=== PATIENT | female | born 1990 | race Caucasian/White ===

== ENCOUNTER 2016-08-12 09:40 | Day surgery (SDC) | payer OTHER ==
[2016-08-12] MEDS ORDERED: Aloe Vera/Sodium Chloride Gel 14.1 GM Tube ONE (09:55)
[2016-08-12] MEDS ORDERED: Oxymetazoline 0.05% Nasal Spray 15 ML Bottle ONE (09:55)
[2016-08-12] MEDS ORDERED: Lidocaine 2% with EPINEPHrine 1:100,000 20 ML MDV ONE (09:55)
[2016-08-12] MEDS ORDERED: Midazolam 1 MG/ML 2 ML SDV ONE (10:03)
[2016-08-12] MEDS ORDERED: fentaNYL 250 MCG/5 ML SDV ONE (10:03)
[2016-08-12] MEDS ORDERED: Lidocaine 2% 5 ML SDV ONE (10:03)
[2016-08-12] MEDS ORDERED: Propofol 200 MG/20 ML SDV ONE (10:03)
[2016-08-12] MEDS ORDERED: Rocuronium 10 MG/ML 10 ML Syringe ONE (10:20)
[2016-08-12] MEDS ORDERED: Ondansetron 4 MG/2 ML SDV ONE (10:21)
[2016-08-12] MEDS ORDERED: Neostigmine Methylsulfate 1 MG/ML 5 ML Syringe IV ONE (10:24)
[2016-08-12] MEDS ORDERED: Scopolamine 1.5 MG Transdermal Patch TRDERM PRN (10:46)
--- NOTE | 2016-08-12 10:46 | PCM.PREANE ---
Preanesthetic Assessment - Anesthesia/Transfusion/Family Hx Anesthesia History: Prior Anesthesia Without Reaction Transfusion History: No Prior Transfusion(s) - Physical Assessment O2 Sat by Pulse Oximetry: 98 Respiratory Rate: 16 Vital Signs: Last Vital Signs Temp 36.7 C 08/12/16 10:05 Pulse 79 08/12/16 10:05 Resp 16 08/12/16 10:05 BP 116/62 08/12/16 10:05 Pulse Ox 98 08/12/16 10:05 Height: 1.73 m Weight: 62.596 kg - Lab Values: Laboratory Last Values Urine HCG, Qual NEGATIVE (NEGATIVE) 08/12/16 10:00 - Allergies Allergies/Adverse Reactions: Allergies Allergy/AdvReac Type Severity Reaction Status Date / Time venom-honey bee Allergy Anaphylactic Verified 08/11/16 08:48 [bee venom (honey bee)] Shock PreAnesthesia Questionnaire HEENT History: Reports: Sinusitis (maxillary) Cardiovascular History: Reports: Other (see below) Other Cardiovascular History: states has irregular heartbeat at times Respiratory History: Reports: Asthma (mild/moderate) Neurological History: Reports: Headaches, chronic, Other (see below) (fatigue) Psychiatric History: Reports: ADHD, Anxiety Other Immunologic History: IgA/Ige - Past Surgical History Head Surgeries/Procedures: Reports: None HEENT Surgical History: Reports: Naso-sinus surgery (for deviated septum), Oral surgery, Other (see below) ('ears pinned back') - SUBSTANCE USE Smoking Status *Q: Never Smoker Second Hand Smoke Exposure: No Days Per Week of Alcohol Use: 1 Number of Drinks Per Day: 1 Total Drinks Per Week: 1 Recreational Drug Use History: No - HOME MEDS Home Medications: Home Meds Dextroamphetamine/Amphetamine [Adderall 10 mg Tablet] 1 tab PO DAILY PRN [History] Albuterol [Ventolin HFA] 2 puff INH ASDIRECTED PRN 08/11/16 [History] EPINEPHrine [Epipen 2-Jaquan] 1 injection SUBCUT ASDIRECTED PRN 08/11/16 [History] Fluticasone Propionate [Flonase Allergy Relief] 2 spray BÁRBARA BID PRN 08/11/16 [ History] Fluticasone Propionate [Flovent HFA 110 MCG] 2 puff INH BID 08/11/16 [History] Ibuprofen 1 tab PO TID PRN 08/11/16 [History] Montelukast Sodium 10 mg PO BEDTIME 08/11/16 [History] - CURRENT (IN HOUSE) MEDS Current Meds: Current Medications Discontinued Medications Fentanyl (Sublimaze) Confirm Administered Dose 250 mcg .ROUTE .STK-MED ONE Stop: 08/12/16 10:04 Lidocaine (Xylocaine-Mpf 2%) Confirm Administered Dose 10 ml .ROUTE .STK-MED ONE Stop: 08/12/16 10:04 Lidocaine/Epinephrine (Xylocaine 2% With Epinephrine 1:100,000) Confirm Administered Dose 20 ml .ROUTE .STK-MED ONE Stop: 08/12/16 09:56 Midazolam HCl (Versed 1 Mg/Ml) Confirm Administered Dose 2 mg .ROUTE .STK-MED ONE Stop: 08/12/16 10:04 Ondansetron HCl (Zofran) Confirm Administered Dose 4 mg .ROUTE .STK-MED ONE Stop: 08/12/16 10:22 Oxymetazoline HCl (Afrin Original 0.05% Nasal [place]) Confirm Administered Dose 15 ml .ROUTE .STK-MED ONE Stop: 08/12/16 09:56 Propofol (Diprivan 20 Ml) Confirm Administered Dose 400 mg .ROUTE .STK-MED ONE Stop: 08/12/16 10:04 Rocuronium [place] (Zemuron) Confirm Administered Dose 100 mg .ROUTE .STK-MED ONE Stop: 08/12/16 10:21 Sodium Chloride ([place]ard Saline Nasal Gel) Confirm Administered Dose 14.1 gm .ROUTE .STK-MED ONE Stop: 08/12/16 09:56 Preanesthetic Assessment - ANESTHESIA/TRANSFUSION/FAMILY HX Anesthesia/Transfusion History: Prior Anesthesia Type of Anesthesia Reaction: Reports: Excessive Nausea/Vomiting Family History of Anesthesia Reaction: No Other Intubation History Comment: no known problems - REVIEW OF SYSTEMS Constitutional: Reports: no symptoms 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: no symptoms Respiratory: Reports: no symptoms Cardiovascular: Reports: no symptoms GI: Reports: no symptoms Other: Reports: None - PHYSICAL ASSESSMENT O2 Sat by Pulse Oximetry: 98 RR: 16 Vital Signs: Last Vital Signs Temp 36.7 C 08/12/16 10:05 Pulse 79 08/12/16 10:05 Resp 16 08/12/16 10:05 BP 116/62 08/12/16 10:05 Pulse Ox 98 08/12/16 10:05 Height: 1.73 m Weight: 62.596 kg ASA Class: 2 Mental Status: Alert & Oriented x3 Airway Class: Mallampati = 2 Dentition: Reports: Normal Dentition Thyro-Mental Finger Breadths: 3 Mouth Opening Finger Breadths: 3 ROM/Head Extension: Full Respiratory Status: lungs clear to auscultation bilaterally Cardiovascular Status: regular rate & rhythm, normal S1, S2, no murmur, blood pressure WNL - LAB Values: Laboratory Last Values Urine HCG, Qual NEGATIVE (NEGATIVE) 08/12/16 10:00 - ALLERGIES Allergies/Adverse Reactions: Allergies Allergy/AdvReac Type Severity Reaction Status Date / Time venom-honey bee Allergy Anaphylactic Verified 08/11/16 08:48 [bee venom (honey bee)] Shock - BLOOD Blood Available: No - ANESTHESIA PLAN Preop Beta Lesvia: No Anesthesia Type Planned: General Anesthesia - ACKNOWLEDGEMENTS Pt an Appropriate Candidate for the Planned Anesthesia: Yes Alternatives and Risks of Anesthesia Discussed w Pt/Guardian: Yes Pt/Guardian Understands and Agrees with Anesthesia Plan: Yes
[2016-08-12] MEDS ORDERED: Lactated Ringers 1,000 ML IV SCH (11:00)
--- NOTE | 2016-08-12 11:36 | PCM.HPR ---
H & P Addendum review - H & P Addendum Review Date of Original H & P: 08/06/16 Date Reviewed: 08/12/16 Time Reviewed: 11:15 Patient was examined: No Changes
[2016-08-12] MEDS ORDERED: Lidocaine 1% 20 ML MDV ONE (12:28)
[2016-08-12] MEDS ORDERED: fentaNYL 100 MCG/2 ML SDV IVPUSH PRN (12:45)
--- NOTE | 2016-08-12 13:30 | PCM.OPNOTE ---
- General Post-Op/Procedure Note Date of Surgery/Procedure: 08/12/16 Condition: Good Free Text/Narrative:: Pre operative Diagnosis: Nasal congestion, bilateral inferior turbinate hypertrophy, rhinitis Post operative Diagnosis : Same Procedure: Coblation reduction of bilateral inferior turbinates [ CPT 83397( 50) ]. Surgeon: Nan Gamboa MD Anesthesia: GA Anesthesiologist: Dr Bryant Date of procedure: 08/12/16 Indications: Nasal congestion, bilateral inferior turbinate hypertrophy, rhinitis Findings: Bilateral inferior turbinate hypertrophy; pale mucosa; stringy mucoid secretions Operation Details: An informed consent was obtained. A time out was performed and the patient was brought back to the operating room and laid supine on the operating table. General anesthesia was administered with an endotracheal tube. Patient was prepped and draped in a standard fashion. A 0 degree rigid nasal endoscope was used to examine bilateral nasal cavities and photo documentation was obtained. Bilateral inferior turbinates were injected with 1% lidocaine - 2 mls was used on each side. Bilateral nasal cavities were packed with Afrin 0.5% soaked pledgets which were removed after an adequate period of decongestion. The left inferior turbinate was addressed first. A reflex 45 coblation wand with tip dipped in AYR Gel was used at setting of 6 :2 for Coblation and coagulation respectively. The point of entry was coagulated and wand was inserted till the third marking. Three michel lasting 10 seconds each were created in the single channel. The inferior turbinate was visibly shrunk. Similar procedure was repeated on the right side with visible reduction in size of turbinates. BAcitracin was applied to the turbinates bilaterally. This concluded the procedure and the patient was handed over to anesthesia for recovery. Specimens: none IV fluids: 1200 ml Blood loss: 2 ml Blood products: none Disposition: PACU for recovery Follow up: In 1 week
[2016-08-12] MEDS ORDERED: Acetaminophen 325 MG Tab PO PRN (15:25)
[2016-08-12] MEDS ORDERED: Ibuprofen 400 MG Tab PO PRN (15:26)
--- NOTE | 2016-08-12 15:59 | PCM48HPAN ---
Post Anesthesia Note - EVALUATION WITHIN 48HRS OF ANESTHETIC Vital Signs in Normal Range: Yes Patient Participated in Evaluation: Yes Respiratory Function Stable: Yes Airway Patent: Yes Cardiovascular Function Stable: Yes Hydration Status Stable: Yes Pain Control Satisfactory: Yes Nausea and Vomiting Control Satisfactory: Yes Mental Status Recovered: Yes
[2016-08-12] MEDS ORDERED: traMADol 50 MG Tab PO SCH (16:15)
[2016-08-12 16:56] VITALS: BP 116/68
== END 2016-08-12 15:40 | disposition home or self-care (01) ==
LOC: MW.SDS 09:40
PROVIDERS: ATTEND Otolaryngology
DX: J34.3 Hypertrophy of nasal turbinates (principal); J31.0 Chronic rhinitis; Z91.030 Bee allergy status; J45.909 Unspecified asthma, uncomplicated; Z79.899 Other long term (current) drug therapy; Z98.890 Other specified postprocedural states
CPT/HCPCS: 30802; 81025; A9270; J2250; J2405; J3010; J7120; 00160; J2704

== ENCOUNTER → 2016-10-19 | Outpatient (CLI) | payer OTHER | LOC: MW.CHFP 13:38 | PROVIDERS: ATTEND Physician Assistant | DX: J02.9 Acute pharyngitis, unspecified (principal) | CPT/HCPCS: 87081; 87880 ==

== ENCOUNTER 2017-06-13 10:53 | Emergency (ER) | payer OTHER ==
--- NOTE | 2017-06-13 11:35 | EDM.PDOC ---
ED HPI GENERAL MEDICAL PROBLEM - General Chief Complaint: Respiratory Problem Stated Complaint: LUNG PAIN Time Seen by Provider: 06/13/17 11:35 Source of Information: Reports: Patient - History of Present Illness INITIAL COMMENTS - FREE TEXT/NARRATIVE: HISTORY AND PHYSICAL: History of present illness: [Patient with history of IgA deficiency presents with productive cough for 2 weeks after travel to [place], she has no fever chills sweats no shortness of breath headache dizziness palpitation no bowel or urine symptoms ] Review of systems: As per history of present illness and below otherwise all systems reviewed and negative. Past medical history: As per history of present illness and as reviewed below otherwise noncontributory. Surgical history: As per history of present illness and as reviewed below otherwise noncontributory. Social history: No reported history of drug or alcohol abuse. Family history: As per history of present illness and as reviewed below otherwise noncontributory. Physical exam: HEENT: Atraumatic, normocephalic, pupils reactive, negative for conjunctival pallor or scleral icterus, mucous membranes moist, throat clear, neck supple, nontender, trachea midline. Lungs: Clear to auscultation, breath sounds equal bilaterally, chest nontender. Heart: S1S2, regular, negative for clicks, rubs, or JVD. Abdomen: Soft, nondistended, nontender. Negative for masses or hepatosplenomegaly. Negative for costovertebral tenderness. Pelvis: Stable nontender. Genitourinary: Deferred. Rectal: Deferred. Extremities: Atraumatic, negative for cords or calf pain. Neurovascular unremarkable. Neuro: Awake, alert, oriented. Cranial nerves II through XII unremarkable. Cerebellum unremarkable. Motor and sensory unremarkable throughout. Exam nonfocal. Diagnostics: [Chest 2 views Influenza HCG ] Therapeutics: [Azithromycin 2 g by mouth now Diflucan 100 mg by mouth twice a day #20 no refill ] Impression: [Acute bronchitis Cannot rule out Desert fever IgA deficiency by history ] Definitive disposition and diagnosis as appropriate pending reevaluation and review of above. RIB Pain Score (Numeric/FACES): 7 - Related Data Allergies Allergy/AdvReac Type Severity Reaction Status Date / Time venom-honey bee Allergy Anaphylactic Verified 06/13/17 11:03 [bee venom (honey bee)] Shock Home Meds: Home Meds Dextroamphetamine/Amphetamine [Adderall 10 mg Tablet] 1 tab PO DAILY PRN [History] Albuterol [Ventolin HFA] 2 puff INH ASDIRECTED PRN 08/11/16 [History] EPINEPHrine [Epipen 2-Jaquan] 1 injection SUBCUT ASDIRECTED PRN 08/11/16 [History] Fluticasone Propionate [Flonase Allergy Relief] 2 spray BÁRBARA BID PRN 08/11/16 [ History] Fluticasone Propionate [Flovent HFA 110 MCG] 2 puff INH BID 08/11/16 [History] Ibuprofen 1 tab PO TID PRN 08/11/16 [History] Montelukast Sodium 10 mg PO BEDTIME 08/11/16 [History] Phenylephrine HCl [Nasal [place]] 30 ml NS BID #1 spray 08/12/16 [Rx] Past Medical History HEENT History: Reports: None Cardiovascular History: Reports: Other (See Below) Other Cardiovascular History: states has irregular heartbeat at times Respiratory History: Reports: Asthma Gastrointestinal History: Reports: None Genitourinary History: Reports: None 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 History: Reports: None Musculoskeletal History: Reports: None Neurological History: Reports: Headaches, Chronic, Other (See Below) Psychiatric History: Reports: ADHD, Anxiety Endocrine/Metabolic History: Reports: None Hematologic History: Reports: None Immunologic History: Reports: Other (See Below) Other Immunologic History: IgA/Ige Oncologic (Cancer) History: Reports: None Dermatologic History: Reports: None - Past Surgical History Head Surgeries/Procedures: Reports: None HEENT Surgical History: Reports: Naso-Sinus Surgery, Oral Surgery, Other (See Below) Cardiovascular Surgical History: Reports: None Respiratory Surgical History: Reports: None GI Surgical History: Reports: None Female Surgical History: Reports: None Endocrine Surgical History: Reports: None Neurological Surgical History: Reports: None Musculoskeletal Surgical History: Reports: None Dermatological Surgical History: Reports: None Social & Family History - Family History Family Medical History: Noncontributory - Tobacco Use Smoking Status *Q: Never Smoker Second Hand Smoke Exposure: No - Caffeine Use Caffeine Use: Reports: Coffee - Alcohol Use Days Per Week of Alcohol Use: 1 Number of Drinks Per Day: 1 Total Drinks Per Week: 1 - Recreational Drug Use Recreational Drug Use: No ED ROS GENERAL - Review of Systems Review Of Systems: ROS reveals no pertinent complaints other than HPI. ED EXAM, GENERAL - Physical Exam Exam: See Below Course - Vital Signs Last Recorded V/S: Last Vital Signs Temp 96.5 F 06/13/17 11:05 Pulse 73 06/13/17 12:57 Resp 18 06/13/17 11:05 BP 110/74 06/13/17 12:57 Pulse Ox 100 06/13/17 12:57 - Orders/Labs/Meds Labs: Laboratory Tests 06/13/17 Range/Units 11:10 Urine HCG, Qual NEGATIVE (NEGATIVE) Meds: Medications Discontinued Medications Generic Name Dose Route Start Last Admin Trade Name Husam PRN Reason Stop Dose Admin Azithromycin 2,000 mg 06/13/17 12:25 06/13/17 12:38 Zithromax PO 06/13/17 12:26 2,000 mg NOW STA Administration Departure - Departure Time of Disposition: 05:25 Disposition: Home, Self-Care 01 Clinical Impression: Acute bronchitis - Discharge Information Instructions: Acute Bronchitis, [id number] Referrals: Merle Galicia NEWCOMER HOSTESS [Primary Care Provider] - Forms: ED Department Discharge
[2017-06-13] MEDS ORDERED: Azithromycin 250 MG Tab PO STA (12:25)
[2017-06-13 13:03] VITALS: BP 110/74
--- NOTE | 2017-06-14 19:19 | CR ---
EXAM DATE: 06/13/17 PATIENT'S AGE: 26 Patient: NAIF WOLFE Facility: [place], [place] Site . Site : 1990 Study: XRay Chest [id number]/14/2018 11:58:15 AM Ordering Physician: Angle Junior Final Report: INDICATION: Pain. Shortness of breath. TECHNIQUE: PA and lateral chest x-ray. COMPARISON: Chest x-ray 05/13/2017. FINDINGS: Heart size normal. Lungs clear without infiltrate. Chest otherwise negative without acute disease. Dictated by Colton Poole MD @ Jun 13 2017 12:15PM (Electronic Signature) Report Signed by Proxy. CHRIS
== END 2017-06-13 13:10 | disposition home or self-care (01) ==
LOC: MW.ED 10:53
DX: J20.9 Acute bronchitis, unspecified (principal); J45.909 Unspecified asthma, uncomplicated; F90.9 Attention-deficit hyperactivity disorder, unspecified type; Z79.899 Other long term (current) drug therapy; Z91.030 Bee allergy status
CPT/HCPCS: 71046; 81025; 87804; 99283; A9270

== ENCOUNTER 2018-01-31 11:50 | Emergency (ER) | payer BC, OTHER ==
--- NOTE | 2018-01-31 12:08 | EDM.PDOC ---
ED HPI GENERAL MEDICAL PROBLEM - General Chief Complaint: ENT Problem Stated Complaint: SINUS INFECTION Time Seen by Provider: 01/31/18 11:51 Source of Information: Reports: Patient History Limitations: Reports: No Limitations - History of Present Illness INITIAL COMMENTS - FREE TEXT/NARRATIVE: HISTORY AND PHYSICAL: History of present illness: Patient is a 27-year-old female who presents to the emergency room today with complaints of sinus pain for the past 2-3 days. She states that she is concerned she has a sinus infection. She is being seen at [facility] for equipment sinus infections, has had 10 within the last year. Subjective fever and chills. She denies any chest pain, shortness of breath or cough. Denies any abdominal pain, nausea, vomiting, diarrhea or constipation. Denies any chance of . Review of systems: As per history of present illness and below otherwise all systems reviewed and negative. Past medical history: As per history of present illness and as reviewed below otherwise noncontributory. Surgical history: As per history of present illness and as reviewed below otherwise noncontributory. Social history: No reported history of drug or alcohol abuse. Family history: As per history of present illness and as reviewed below otherwise noncontributory. Physical exam: General: Well-developed and well-nourished 27-year-old female. Alert and oriented. Nontoxic appearing and in no acute distress. HEENT: Atraumatic, normocephalic, pupils equal and reactive bilaterally, negative for conjunctival pallor or scleral icterus, frontal and bilateral maxillary sinus tenderness with palpation, mucous membranes moist, throat clear , TMs normal bilaterally, neck supple, nontender, trachea midline. No drooling or trismus noted. No meningeal signs Lungs: Clear to auscultation, breath sounds equal bilaterally, chest nontender. Heart: S1S2, regular rate and rhythm without overt murmur Abdomen: Soft, nondistended, nontender. Negative for masses or hepatosplenomegaly. Negative for costovertebral tenderness. Pelvis: Stable nontender. Genitourinary: Deferred. Rectal: Deferred. Skin: Intact, warm, dry. No lesions or rashes noted. Extremities: Atraumatic, negative for cords or calf pain. Neurovascular unremarkable. Neuro: Awake, alert, oriented. Cranial nerves II through XII unremarkable. Cerebellum unremarkable. Motor and sensory unremarkable throughout. Exam nonfocal. Notes: Patient states that she has had 10 sinus infections within the last year. I did offer to treat her for the sinus infection with antibiotics. She is adamant that she receives a head CT as she states "[place] needs to have this". We did discuss the versus benefits of repeated head CT's. She voices understanding and is agreeable to plan of care. We'll do a CT of her sinuses. CT shows mild sinus disease involving the maxillary and ethmoid sinuses bilaterally. I did share this information with the patient and she would like to be treated with antibiotics. We discussed appropriate follow-up as she states she does continue to see a provider at [facility]. She denies any further questions or concerns at this time. Diagnostics: Maxillofacial CT Therapeutics: None Prescription: Augmentin Impression: Sinusitis Plan: 1. Take the antibiotic as directed. 2. Tylenol and/or ibuprofen as needed for pain management. 3. Please follow-up with the ENT specialist as you already have established care with them. Return to the ED as needed and as discussed. Definitive disposition and diagnosis as appropriate pending reevaluation and review of above. - Related Data Allergies Allergy/AdvReac Type Severity Reaction Status Date / Time venom-honey bee Allergy Anaphylactic Verified 06/13/17 11:03 [bee venom (honey bee)] Shock Home Meds: Home Meds Dextroamphetamine/Amphetamine [Adderall 10 mg Tablet] 1 tab PO DAILY PRN [History] Albuterol [Ventolin HFA] 2 puff INH ASDIRECTED PRN 08/11/16 [History] EPINEPHrine [Epipen 2-Jaquan] 1 injection SUBCUT ASDIRECTED PRN 08/11/16 [History] Fluticasone Propionate [Flonase Allergy Relief] 2 spray BÁRBARA BID PRN 08/11/16 [ History] Fluticasone Propionate [Flovent HFA 110 MCG] 2 puff INH BID 08/11/16 [History] Ibuprofen 1 tab PO TID PRN 08/11/16 [History] Montelukast Sodium 10 mg PO BEDTIME 08/11/16 [History] Phenylephrine HCl [Nasal [place]] 30 ml NS BID #1 spray 08/12/16 [Rx] Past Medical History HEENT History: Reports: None Cardiovascular History: Reports: Other (See Below) Other Cardiovascular History: states has irregular heartbeat at times Respiratory History: Reports: Asthma Gastrointestinal History: Reports: None Genitourinary History: Reports: None 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: 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: None Musculoskeletal History: Reports: None Neurological History: Reports: Headaches, Chronic, Other (See Below) Psychiatric History: Reports: ADHD, Anxiety Endocrine/Metabolic History: Reports: None Hematologic History: Reports: None Immunologic History: Reports: Other (See Below) Other Immunologic History: IgA/Ige Oncologic (Cancer) History: Reports: None Dermatologic History: Reports: None - Past Surgical History Head Surgeries/Procedures: Reports: None HEENT Surgical History: Reports: Naso-Sinus Surgery, Oral Surgery, Other (See Below) Cardiovascular Surgical History: Reports: None Respiratory Surgical History: Reports: None GI Surgical History: Reports: None Female Surgical History: Reports: None Endocrine Surgical History: Reports: None Neurological Surgical History: Reports: None Musculoskeletal Surgical History: Reports: None Dermatological Surgical History: Reports: None Social & Family History - Family History Family Medical History: Noncontributory - Caffeine Use Caffeine Use: Reports: Coffee ED ROS ENT - Review of Systems Review Of Systems: ROS reveals no pertinent complaints other than HPI. ED EXAM, ENT - Physical Exam Exam: See Below (See dictation) Course - Orders/Labs/Meds Orders: Active Orders 24 hr Category Date Time Status Max Facial Sinus wo Cont [CT] Stat Exams 01/31/18 12:04 Taken Meds: Medications Discontinued Medications Generic Name Dose Route Start Last Admin Trade Name Freq PRN Reason Stop Dose Admin Amoxicillin/Clavulanate Potassium 1 tab 01/31/18 13:43 Augmentin 875 Mg/125 Mg PO 01/31/18 13:44 ONETIME ONE Departure - Departure Time of Disposition: 13:50 Disposition: Home, Self-Care 01 Clinical Impression: Sinusitis Qualifiers: Sinusitis location: maxillary Chronicity: acute Recurrence: recurrent Qualified Code(s): J01.01 - Acute recurrent maxillary sinusitis - Discharge Information Instructions: Sinusitis, Adult, [id number] Referrals: PCP,None [Primary Care Provider] - Forms: ED Department Discharge Additional Instructions: The following information is given to patients seen in the emergency department who are being discharged to home. This information is to outline your options for follow-up care. We provide all patients seen in our emergency department with a follow-up referral. The need for follow-up, as well as the timing and circumstances, are variable depending upon the specifics of your emergency department visit. If you don't have a primary care physician on staff, we will provide you with a referral. We always advise you to contact your personal physician following an emergency department visit to inform them of the circumstance of the visit and for follow-up with them and/or the need for any referrals to a consulting specialist. The emergency department will also refer you to a specialist when appropriate. This referral assures that you have the opportunity for follow-up care with a specialist. All of these measure are taken in an effort to provide you with optimal care, which includes your follow-up. Under all circumstances we always encourage you to contact your private physician who remains a resource for coordinating your care. When calling for follow-up care, please make the office aware that this follow-up is from your recent emergency room visit. If for any reason you are refused follow-up, please contact the [facility] Emergency Department at and asked to speak to the emergency department charge nurse. [facility] Primary [facility] [address] [place] [id number] 1. Take the antibiotic as directed. 2. Tylenol and/or ibuprofen as needed for pain management. 3. Please follow-up with the ENT specialist as you already have established care with them. Return to the ED as needed and as discussed. - My Orders Last 24 Hours: My Active Orders 01/31/18 12:04 Max Facial Sinus wo Cont [CT] Stat - Assessment/Plan Last 24 Hours: My Active Orders 01/31/18 12:04 Max Facial Sinus wo Cont [CT] Stat
[2018-01-31] MEDS ORDERED: Amoxicillin/Clavulanate K 875-125 MG Tab PO ONE (13:43)
[2018-01-31 14:28] VITALS: BP 122/93
--- NOTE | 2018-02-01 09:25 | CT ---
EXAM DATE: 01/31/18 PATIENT'S AGE: 27 Patient: NAIF WOLFE Facility: [place], [place] Site . Site : 1990 Study: CT Facial SINUS [id number]/3/2018 12:38:35 PM Ordering Physician: Doctor Avila Final Report: INDICATION: SINUS INFECTION, HX 2 SINUS SURGERIES TECHNIQUE: Helical noncontrast scans obtained through the paranasal sinuses. COMPARISON: CT scan of the sinuses 07/01/2016. FINDINGS: 1. Mild membrane thickening in the maxillary and ethmoid sinuses bilaterally. Small amount of mucus material in 1 of the right posterior ethmoid air cells. No air-fluid levels. The sphenoid and frontal sinuses are clear. Infundibulum of the ostiomeatal complex is obscured by membrane thickening bilaterally. 2. Chronic deviation of the nasal septum to the left by approximately 5 mm. Aylin bullosa in the right middle turbinate. Small amount of fluid within the air cell in the right middle turbinate. Hypertrophy of the right inferior nasal turbinate posteriorly without a discrete polyp identified. Olfactory recesses are well aerated. 3. Mastoid air cells and middle ears are clear. 4. Prominent adenoids. 5. Visualized intracranial structures are normal. IMPRESSION: Mild sinus disease involving the maxillary and ethmoid sinuses bilaterally as well as an air cell within the right middle turbinate. Sinus disease has worsened since 07/01/2016. Dictated by Terry Sheffield MD @ 01/31/2018 1:37:39 PM Dictated by: Terry Sheffield MD @ 01/31/2018 13:37:51 (Electronic Signature) Report Signed by Proxy. [facility] HEALTHJeanette
== END 2018-01-31 14:15 | disposition home or self-care (01) ==
LOC: MW.ED 11:50
DX: J01.01 Acute recurrent maxillary sinusitis (principal); J45.909 Unspecified asthma, uncomplicated; Z91.030 Bee allergy status; Z79.899 Other long term (current) drug therapy
CPT/HCPCS: 70486; 99283; A9270

== ENCOUNTER 2019-02-15 22:44 | Emergency (ER) | payer SELFPAY ==
--- NOTE | 2019-02-15 23:45 | EDM.PDOC ---
ED HPI GENERAL MEDICAL PROBLEM - General Chief Complaint: Upper Extremity Injury/Pain Stated Complaint: PT HURT RT HAND Time Seen by Provider: 02/15/19 23:39 - History of Present Illness INITIAL COMMENTS - FREE TEXT/NARRATIVE: HISTORY AND PHYSICAL: History of present illness: Patient is a healthy 28-year-old female who presents with complaints of persistent pain to the dorsal aspect of her right hand near the fourth and fifth digits. The patient said that 2 days ago she got her hand trapped in a stair railing and fell and it pulled the hand and she's had pain ever since with swelling. She is able to move her fingers and doesn't have finger pain per se but it's mostly in her hand. She has no proximal wrist forearm elbow or shoulder pain and she did not hit her head pass out or blackout. She is right- hand dominant. She has no neurosensory changes in her fingers or hand Review of systems: As per history of present illness and below otherwise all systems reviewed and negative. Past medical history: As per history of present illness and as reviewed below otherwise noncontributory. Surgical history: As per history of present illness and as reviewed below otherwise noncontributory. Social history: No reported history of drug or alcohol abuse. Family history: As per history of present illness and as reviewed below otherwise noncontributory. Physical exam: General: Well-developed well-nourished female who is nontoxic and vital signs are noted by me HEENT: Atraumatic, normocephalic, negative for conjunctival pallor or scleral icterus, mucous membranes moist, throat clear, neck supple, nontender, trachea midline. Lungs: Clear to auscultation, breath sounds equal bilaterally, chest nontender. Heart: S1S2, regular, and rhythm no overt murmurs Abdomen: Deferred Pelvis: Deferred Genitourinary: Deferred. Rectal: Deferred. Extremities: Atraumatic, full range of motion of all extremities with the exception of the right hand where there is ecchymosis and some soft tissue swelling appreciated on the dorsal aspect near the third fourth and fifth metacarpals. The fingers are intact without tenderness defects or soft tissue swelling as is the proximal wrist forearm elbow shoulder and clavicle. Refill is normal. Neurovascular unremarkable. Neuro: Awake, alert, oriented. Cranial nerves II through XII unremarkable. Cerebellum unremarkable. Motor and sensory unremarkable throughout. Exam nonfocal. Diagnostics: X-ray right hand Therapeutics: Toradol IM short arm post mold and sling Short arm post mold was placed by nursing and neurovascular is checked by me and are okay [id number]: case Was discussed with Dr. Barnes the hand specialist at [facility] in [place] and he agrees that she can call and see him in the clinic. I will give her that information. I will give her [facility] with Lincoln to use as needed Impression: Right hand injury/nondisplaced oblique fracture of the fourth metacarpal Definitive disposition and diagnosis as appropriate pending reevaluation and review of above. 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: Reports: Acetaminophen right hand Pain Score (Numeric/FACES): 7 - Related Data Allergies Allergy/AdvReac Type Severity Reaction Status Date / Time venom-honey bee Allergy Anaphylactic Verified 02/15/19 23:14 [bee venom (honey bee)] Shock Home Meds: Home Meds Dextroamphetamine/Amphetamine [Adderall 10 mg Tablet] 20 mg PO DAILY PRN [History] Albuterol [Ventolin HFA] 2 puff INH ASDIRECTED PRN 08/11/16 [History] Control 02/15/19 [History] FLUoxetine [PROzac] 1 tab PO DAILY 02/15/19 [History] Past Medical History HEENT History: Reports: None Cardiovascular History: Reports: Other (See Below) Other Cardiovascular History: states has irregular heartbeat at times Respiratory History: Reports: Asthma Gastrointestinal History: Reports: None Genitourinary History: Reports: None 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 Musculoskeletal History: Reports: None Neurological History: Reports: Headaches, Chronic, Other (See Below) Psychiatric History: Reports: ADHD, Anxiety, Depression Endocrine/Metabolic History: Reports: None Hematologic History: Reports: None Immunologic History: Reports: Other (See Below) Other Immunologic History: IgA/Ige Oncologic (Cancer) History: Reports: None Dermatologic History: Reports: None - Past Surgical History Head Surgeries/Procedures: Reports: None HEENT Surgical History: Reports: Naso-Sinus Surgery, Oral Surgery Cardiovascular Surgical History: Reports: None Respiratory Surgical History: Reports: None GI Surgical History: Reports: None Female Surgical History: Reports: None Endocrine Surgical History: Reports: None Neurological Surgical History: Reports: None Musculoskeletal Surgical History: Reports: None Dermatological Surgical History: Reports: None Social & Family History - Family History Family Medical History: Noncontributory - Tobacco Use Smoking Status *Q: Never Smoker - Caffeine Use Caffeine Use: Reports: Coffee - Recreational Drug Use Recreational Drug Use: No Review of Systems - Review of Systems Review Of Systems: ROS reveals no pertinent complaints other than HPI. ED EXAM, GENERAL - Physical Exam Exam: See Below (See dictation) Course - Vital Signs Last Recorded V/S: Last Vital Signs Temp 36.8 C 02/15/19 23:00 Pulse 107 H 02/15/19 23:00 Resp 16 02/15/19 23:00 BP 116/84 02/15/19 23:00 Pulse Ox 95 02/15/19 23:00 - Orders/Labs/Meds Orders: Active Orders 24 hr Category Date Time Status DME for Discharge [COMM] Stat Oth 02/16/19 00:46 Ordered Meds: Medications Discontinued Medications Generic Name Dose Route Start Last Admin Trade Name Freq PRN Reason Stop Dose Admin Ketorolac Tromethamine 60 mg 02/16/19 00:02 02/16/19 00:08 Toradol IM 02/16/19 00:03 60 mg ONETIME ONE Administration Departure - Departure Time of Disposition: 00:59 Disposition: Home, Self-Care 01 Condition: Good Clinical Impression: Injury of right hand Qualifiers: Encounter type: initial encounter Qualified Code(s): S69.91XA - Unspecified injury of right wrist, hand and finger(s), initial encounter Metacarpal bone fracture Qualifiers: Encounter type: initial encounter Metacarpal bone: fourth Fracture type: closed Metacarpal location: shaft Fracture alignment: nondisplaced Laterality: right Qualified Code(s): S62.354A - Nondisplaced fracture of shaft of fourth metacarpal bone, right hand, initial encounter for closed fracture - Discharge Information Instructions: Metacarpal Fracture, [id number] Referrals: PCP,None [Primary Care Provider] - Forms: ED Department Discharge Additional Instructions: The following information is given to patients seen in the emergency department who are being discharged to home. This information is to outline your options for follow-up care. We provide all patients seen in our emergency department with a follow-up referral. The need for follow-up, as well as the timing and circumstances, are variable depending upon the specifics of your emergency department visit. If you don't have a primary care physician on staff, we will provide you with a referral. We always advise you to contact your personal physician following an emergency department visit to inform them of the circumstance of the visit and for follow-up with them and/or the need for any referrals to a consulting specialist. The emergency department will also refer you to a specialist when appropriate. This referral assures that you have the opportunity for followup care with a specialist. All of these measure are taken in an effort to provide you with optimal care, which includes your followup. Under all circumstances we always encourage you to contact your private physician who remains a resource for coordinating your care. When calling for followup care, please make the office aware that this follow-up is from your recent emergency room visit. If for any reason you are refused follow-up, please contact the [facility] emergency department at and ask to speak to the emergency department charge nurse. Dr Hoyt & Dr Barnes [address] [address] Ice and elevate the area and leave the splint that was placed on by nursing here in the ED until you follow up with the hand specialist. Dr. Barnes was contacted this morning for follow-up and he has her name so please mention this when you call for follow-up appointment. Please call in the morning for follow- up care. Use [id number] Tylenol or appropriate for pain and he will be given Lincoln from [facility] for stronger pain management but only take while you 're at home. Return to ER as needed and as discussed - My Orders Last 24 Hours: My Active Orders 02/16/19 00:46 DME for Discharge [COMM] Stat - Assessment/Plan Last 24 Hours: My Active Orders 02/16/19 00:46 DME for Discharge [COMM] Stat
[2019-02-16] MEDS ORDERED: Ketorolac 60 MG/2 ML SDV IM ONE (00:02)
--- NOTE | 2019-02-16 00:09 | CR ---
INDICATION: Hand pain. COMPARISON: None. FINDINGS/IMPRESSION: Right hand, 3 views. Acute, nondisplaced, oblique fracture of the mid and distal shaft of the right 4th metacarpal. Mild overlying soft tissue swelling. No dislocation or other significant findings. Dictated by Teja Leblanc MD @ 02/16/2019 12:06:32 AM Dictated by: Teja Leblanc MD @ 02/16/2019 00:07:33 (Electronically Signed)
[2019-02-16 01:43] VITALS: BP 127/94; PULSE 82
== END 2019-02-16 01:31 | disposition home or self-care (01) ==
LOC: MW.ED 22:44
DX: S62.354A Nondisplaced fracture of shaft of fourth metacarpal bone, right hand, initial encounter for closed fracture (principal); S60.221A Contusion of right hand, initial encounter; J45.909 Unspecified asthma, uncomplicated; F41.9 Anxiety disorder, unspecified; F32.9 Major depressive disorder, single episode, unspecified; Z91.030 Bee allergy status; Z79.899 Other long term (current) drug therapy; W10.9XXA Fall (on) (from) unspecified stairs and steps, initial encounter
CPT/HCPCS: 29125; 73130; 96372; 99283; J1885

== ENCOUNTER 2020-02-11 22:05 | Emergency (ER) | payer MEDICAID, OTHER ==
[2020-02-11] MEDS ORDERED: Sodium Chloride 0.9% 10 ML Syringe FLUSH PRN (22:52)
[2020-02-11] MEDS ORDERED: Sodium Chloride 0.9% 2.5 ML Syringe FLUSH PRN (22:52)
--- NOTE | 2020-02-11 22:55 | EDM.PDOC ---
ED HPI GENERAL MEDICAL PROBLEM - General Chief Complaint: Cardiovascular Problem Stated Complaint: DIZZY, CAN'T STAND Time Seen by Provider: 02/11/20 22:51 Source of Information: Reports: Patient - History of Present Illness INITIAL COMMENTS - FREE TEXT/NARRATIVE: History of present illness: 29-year-old female presenting with cough, runny nose and nosebleeds and generalized fatigue and dizziness for the last 4 days. She reports she feels if she is going to pass out. She has not had any chest pain, although she does report that she feels that her chest is tight, like her breathing is tight. She does have a history of asthma and has been using her inhaler. She did have some diarrhea when her symptoms first started. Did not recall any sick exposures, however she has been going to the grocery store, yoga and yazdanism. Review of systems: As per history of present illness and below otherwise all systems reviewed and negative. Past medical history: As per history of present illness and as reviewed below otherwise noncontributory. Asthma Surgical history: As per history of present illness and as reviewed below otherwise noncontributory. Ear tubes Social history: No reported history of drug or alcohol abuse. Never smoker Family history: As per history of present illness and as reviewed below otherwise noncontributory. Physical exam: GEN: no acute distress, well appearing HEENT: Atraumatic, normocephalic, mucous membranes moist, Neck: supple. Lungs: No respiratory distress. Heart: Tachycardic Abdomen: Soft, nondistended, nontender. Back: nontender Extremities: Atraumatic. Neurovascularly intact. Neuro: Awake, alert, oriented. Neuro Exam nonfocal. Skin: warm, dry, no lesions Diagnostics: Labs, COVID swab, chest x-ray, EKG Therapeutics: IV fluids MDM: Impression: [] Plan: [] Definitive disposition and diagnosis as appropriate pending reevaluation and review of above. chest Pain Score (Numeric/FACES): 5 - Related Data Allergies Allergy/AdvReac Type Severity Reaction Status Date / Time venom-honey bee Allergy Anaphylactic Verified 02/11/20 22:27 [bee venom (honey bee)] Shock Home Meds: Home Meds Dextroamphetamine/Amphetamine [Adderall 10 mg Tablet] 20 mg PO DAILY PRN 11/15/14 [History] Albuterol [Ventolin HFA] 2 puff INH ASDIRECTED PRN 08/11/16 [History] Control 02/15/19 [History] FLUoxetine [PROzac] 1 tab PO DAILY 02/15/19 [History] Muscle Relaxwer 02/11/20 [History] predniSONE [Prednisone] 60 mg PO DAILY 5 Days #15 tablet 02/12/20 [Rx] Past Medical History HEENT History: Reports: None Cardiovascular History: Reports: Other (See Below) Other Cardiovascular History: states has irregular heartbeat at times Respiratory History: Reports: Asthma Gastrointestinal History: Reports: None Genitourinary History: Reports: None 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 Musculoskeletal History: Reports: None Neurological History: Reports: Headaches, Chronic, Other (See Below) Psychiatric History: Reports: ADD, Anxiety Endocrine/Metabolic History: Reports: None Hematologic History: Reports: None Immunologic History: Reports: Other (See Below) Other Immunologic History: IgA/Ige Oncologic (Cancer) History: Reports: None Dermatologic History: Reports: None - Infectious Disease History Infectious Disease History: Reports: Chicken Pox - Past Surgical History Head Surgeries/Procedures: Reports: None HEENT Surgical History: Reports: Myringotomy w Tube(s), Naso-Sinus Surgery, Oral Surgery Cardiovascular Surgical History: Reports: None Respiratory Surgical History: Reports: None GI Surgical History: Reports: None Female Surgical History: Reports: None Endocrine Surgical History: Reports: None Neurological Surgical History: Reports: None Musculoskeletal Surgical History: Reports: None Dermatological Surgical History: Reports: None Social & Family History - Family History Family Medical History: Noncontributory - Tobacco Use Smoking Status *Q: Never Smoker - Caffeine Use Caffeine Use: Reports: Coffee - Recreational Drug Use Recreational Drug Use: No ED ROS GENERAL - Review of Systems Review Of Systems: See Below (see hpi) ED EXAM, GENERAL - Physical Exam Exam: See Below (See HPI) EKG INTERPRETATION EKG Interpretation Comments: EKG performed at 11:16 PM, sinus tachycardia, rate 103, borderline QT interval, QTC 475. No acute ischemia, no STEMI. Interpreted by me. Course - Vital Signs Text/Narrative:: Patient with cough, mild dyspnea, dizziness and fatigue. History of asthma. Using home albuterol nebulizer without improvement. Chest x-ray shows bronchitis versus reactive airway disease. COVID swab negative. Labs unremarkable. Given IV fluids, DuoNeb nebulizer treatment, Tessalon and Robitussin with improvement in symptoms. She was able to walk to the bathroom without any dizziness or near syncope. No dyspnea on reassessment. Able to speak in clear and full sentences without any pause or signs of difficulty breathing. Will start steroids p.o. and give brief steroid burst. Initially tachycardic on arrival here, however after IV fluids were given her heart rate had much improved. Last Recorded V/S: Last Vital Signs Temp 96.8 F L 02/11/20 22:23 Pulse 130 H 02/11/20 22:23 Resp 16 02/11/20 22:23 BP 122/85 02/11/20 22:23 Pulse Ox 99 02/11/20 22:23 - Orders/Labs/Meds Orders: Active Orders 24 hr Category Date Time Status EKG Documentation Completion [RC] STAT Care 02/11/20 22:52 Active RT Aerosol Therapy [RC] ASDIRECTED Care 02/12/20 00:03 Active Sodium Chloride 0.9% [Normal Saline] 1,000 ml Med 02/12/20 01:30 Active IV ASDIRECTED Sodium Chloride 0.9% [Saline Flush] Med 02/11/20 22:52 Active 10 ml FLUSH ASDIRECTED PRN Sodium Chloride 0.9% [Saline Flush] Med 02/11/20 22:52 Active 2.5 ml FLUSH ASDIRECTED PRN Saline Lock Insert [OM.PC] Stat Oth 02/11/20 22:52 Ordered Medication Orders Sodium Chloride (Normal Saline) 1,000 mls @ 125 mls/hr IV ASDIRECTED SWAPNA Sodium Chloride (Saline Flush) 10 ml FLUSH ASDIRECTED PRN PRN Reason: Keep Vein Open Last Admin: 02/11/20 23:09 Dose: 10 ml Documented by: EMMA Sodium Chloride (Saline Flush) 2.5 ml FLUSH ASDIRECTED PRN PRN Reason: Keep Vein Open Last Admin: 02/11/20 23:09 Dose: 2.5 ml Documented by: EMMA Labs: Laboratory Tests 02/11/20 02/11/20 02/11/20 Range/Units 23:01 23:01 23:01 WBC 8.52 (4.0-11.0) K/uL RBC 3.95 L (4.30-5.90) M/uL Hgb 12.6 (12.0-16.0) g/dL Hct 37.2 (36.0-46.0) % MCV 94.2 (80.0-98.0) fL MCH 31.9 (27.0-32.0) pg MCHC 33.9 (31.0-37.0) g/dL RDW Std Deviation 38.4 (28.0-62.0) fl RDW Coeff of [place] 11 (11.0-15.0) % Plt Count 349 (150-400) K/uL MPV 10.20 (7.40-12.00) fL Neut % (Auto) 50.6 (48.0-80.0) % Lymph % (Auto) 39.6 (16.0-40.0) % Elliott % (Auto) 7.4 (0.0-15.0) % Eos % (Auto) 1.9 (0.0-7.0) % Baso % (Auto) 0.5 (0.0-1.5) % Neut # (Auto) 4.3 (1.4-5.7) K/uL Lymph # (Auto) 3.4 H (0.6-2.4) K/uL Elliott # (Auto) 0.6 (0.0-0.8) K/uL Eos # (Auto) 0.2 (0.0-0.7) K/uL Baso # (Auto) 0.0 (0.0-0.1) K/uL Sodium 141 (136-145) mmol/L Potassium 3.6 (3.5-5.1) mmol/L Chloride 106 (98-107) mmol/L Carbon Dioxide 28.1 (21.0-32.0) mmol/L BUN 13 (7.0-18.0) mg/dL Creatinine 0.9 (0.6-1.0) mg/dL Est Cr Clr Drug Dosing 92.20 mL/min Estimated GFR (MDRD) > 60.0 ml/min Glucose 111 H (74-106) mg/dL Calcium 8.4 L (8.5-10.1) mg/dL Total Bilirubin 0.2 (0.2-1.0) mg/dL AST 19 (15-37) IU/L ALT 37 (14-63) IU/L Alkaline Phosphatase 67 (46-116) U/L Total Protein 6.7 (6.4-8.2) g/dL Albumin 3.6 (3.4-5.0) g/dL Globulin 3.1 (2.6-4.0) g/dL Albumin/Globulin Ratio 1.2 (0.9-1.6) HCG, Qual NEGATIVE (NEG) Urine Color Urine Appearance Urine pH (5.0-8.0) Ur Specific Marbury (1.001-1.035) Urine Protein (NEGATIVE) mg/dL Urine Glucose (UA) (NEGATIVE) mg/dL Urine Ketones (NEGATIVE) mg/dL Urine Occult Blood (NEGATIVE) Urine Nitrite (NEGATIVE) Urine Bilirubin (NEGATIVE) Urine Urobilinogen (<2.0) EU/dL Ur Leukocyte Esterase (NEGATIVE) Urine RBC (0-2/HPF) Urine WBC (0-5/HPF) Ur Epithelial Cells (NONE-FEW) Urine Bacteria (NEGATIVE) COVID-19 (BEV) (NEGATIVE) 02/11/20 02/12/20 Range/Units 23:21 00:11 WBC (4.0-11.0) K/uL RBC (4.30-5.90) M/uL Hgb (12.0-16.0) g/dL Hct (36.0-46.0) % MCV (80.0-98.0) fL MCH (27.0-32.0) pg MCHC (31.0-37.0) g/dL RDW Std Deviation (28.0-62.0) fl RDW Coeff of [place] (11.0-15.0) % Plt Count (150-400) K/uL MPV (7.40-12.00) fL Neut % (Auto) (48.0-80.0) % Lymph % (Auto) (16.0-40.0) % Elliott % (Auto) (0.0-15.0) % Eos % (Auto) (0.0-7.0) % Baso % (Auto) (0.0-1.5) % Neut # (Auto) (1.4-5.7) K/uL Lymph # (Auto) (0.6-2.4) K/uL Elliott # (Auto) (0.0-0.8) K/uL Eos # (Auto) (0.0-0.7) K/uL Baso # (Auto) (0.0-0.1) K/uL Sodium (136-145) mmol/L Potassium (3.5-5.1) mmol/L Chloride (98-107) mmol/L Carbon Dioxide (21.0-32.0) mmol/L BUN (7.0-18.0) mg/dL Creatinine (0.6-1.0) mg/dL Est Cr Clr Drug Dosing mL/min Estimated GFR (MDRD) ml/min Glucose (74-106) mg/dL Calcium (8.5-10.1) mg/dL Total Bilirubin (0.2-1.0) mg/dL AST (15-37) IU/L ALT (14-63) IU/L Alkaline Phosphatase (46-116) U/L Total Protein (6.4-8.2) g/dL Albumin (3.4-5.0) g/dL Globulin (2.6-4.0) g/dL Albumin/Globulin Ratio (0.9-1.6) HCG, Qual (NEG) Urine Color YELLOW Urine Appearance CLEAR Urine pH 7.0 (5.0-8.0) Ur Specific [place] <= 1.005 (1.001-1.035) Urine Protein NEGATIVE (NEGATIVE) mg/dL Urine Glucose (UA) NEGATIVE (NEGATIVE) mg/dL Urine Ketones NEGATIVE (NEGATIVE) mg/dL Urine Occult Blood TRACE-INTACT H (NEGATIVE) Urine Nitrite NEGATIVE (NEGATIVE) Urine Bilirubin NEGATIVE (NEGATIVE) Urine Urobilinogen 0.2 (<2.0) EU/dL Ur Leukocyte Esterase NEGATIVE (NEGATIVE) Urine RBC 1-3 (0-2/HPF) Urine WBC 0-2 (0-5/HPF) Ur Epithelial Cells RARE (NONE-FEW) Urine Bacteria RARE (NEGATIVE) COVID-19 (BEV) NEGATIVE (NEGATIVE) Meds: Medications Generic Name Dose Route Start Last Admin Trade Name Freq PRN Reason Stop Dose Admin Sodium Chloride 1,000 mls @ 125 mls/hr 02/12/20 01:30 Normal Saline IV ASDIRECTED SWAPNA Sodium Chloride 10 ml 02/11/20 22:52 02/11/20 23:09 Saline Flush FLUSH 10 ml ASDIRECTED PRN Administration Keep Vein Open Sodium Chloride 2.5 ml 09/13/20 22:52 02/11/20 23:09 Saline Flush FLUSH 2.5 ml ASDIRECTED PRN Administration Keep Vein Open Discontinued Medications Generic Name Dose Route Start Last Admin Trade Name Husam PRN Reason Stop Dose Admin Albuterol/Ipratropium 3 ml 02/12/20 00:03 02/12/20 01:12 Duoneb 3.0-0.5 Mg/3 Ml NEB 02/12/20 00:04 3 ml ONETIME ONE Administration Benzonatate 100 mg 02/11/20 22:57 02/11/20 23:09 Tessalon Perles PO 02/11/20 22:58 100 mg ONETIME ONE Administration Guaifenesin 100 mg 02/12/20 00:26 02/12/20 01:12 Robitussin PO 02/12/20 00:27 100 mg ONETIME ONE Administration Sodium Chloride 1,000 mls @ 999 mls/hr 02/11/20 22:56 02/11/20 23:03 Normal Saline IV 02/11/20 23:56 999 mls/hr .Bolus ONE Administration Ondansetron HCl 4 mg 02/11/20 22:56 02/11/20 23:09 Zofran IVPUSH 02/11/20 22:57 4 mg ONETIME ONE Administration Prednisone 60 mg 02/12/20 01:19 02/12/20 01:39 Prednisone PO 02/12/20 01:20 60 mg ONETIME ONE Administration - Re-Assessments/Exams Free Text/Narrative Re-Assessment/Exam: 02/12/20 01:40 Patient is feeling much better. No acute distress. She reports her cough and breathing feel better. Discussed all results with the patient and plan for steroids. Discussed need to self isolate for at least 10 days as she may still be contagious and this may still be coronavirus even though her swab was negative. Patient agrees with this plan. HR at time of discharge 100bpm. Departure - Departure Time of Disposition: 01:41 Disposition: Home, Self-Care 01 Clinical Impression: Bronchitis Prescriptions: predniSONE [Prednisone] 60 mg PO DAILY 5 Days #15 tablet Instructions: Shortness of Breath, Adult, [id number], Upper Respiratory Infection, Adult, [id number] Referrals: Henneberry,Josefina Albina, PHARMACY ASSOCIATE [Primary Care Provider] - 2 Days Forms: ED Department Discharge Additional Instructions: Please take the steroids, 60 mg for the next 5 days. Return to the ER if you develop any worsening difficulty breathing. You may take Robitussin as needed for the cough. The following information is given to patients seen in the emergency department who are being discharged to home. This information is to outline your options for follow-up care. We provide all patients seen in our emergency department with a follow-up referral. The need for follow-up, as well as the timing and circumstances, are variable depending upon the specifics of your emergency department visit. If you don't have a primary care physician on staff, we will provide you with a referral. We always advise you to contact your personal physician following an emergency department visit to inform them of the circumstance of the visit and for follow-up with them and/or the need for any referrals to a consulting specialist. The emergency department will also refer you to a specialist when appropriate. This referral assures that you have the opportunity for follow-up care with a specialist. All of these measure are taken in an effort to provide you with optimal care, which includes your follow-up. Under all circumstances we always encourage you to contact your private physician who remains a resource for coordinating your care. When calling for follow-up care, please make the office aware that this follow-up is from your recent emergency room visit. If for any reason you are refused follow-up, please contact the Emergency Department at and asked to speak to the emergency department charge nurse. Sepsis Event Note (ED) - Evaluation Sepsis Screening Result: No Definite Risk - Focused Exam Vital Signs: Vital Signs Temp Pulse Resp BP Pulse Ox 02/11/20 22:23 96.8 F L 130 H 16 122/85 99 - My Orders Last 24 Hours: My Active Orders 02/11/20 22:52 EKG Documentation Completion [RC] STAT Sodium Chloride 0.9% [Saline Flush] 10 ml FLUSH ASDIRECTED PRN Sodium Chloride 0.9% [Saline Flush] 2.5 ml FLUSH ASDIRECTED PRN Saline Lock Insert [OM.PC] Stat 02/12/20 00:03 RT Aerosol Therapy [RC] ASDIRECTED 02/12/20 01:30 Sodium Chloride 0.9% [Normal Saline] 1,000 ml IV ASDIRECTED - Assessment/Plan Last 24 Hours: My Active Orders 02/11/20 22:52 EKG Documentation Completion [RC] STAT Sodium Chloride 0.9% [Saline Flush] 10 ml FLUSH ASDIRECTED PRN Sodium Chloride 0.9% [Saline Flush] 2.5 ml FLUSH ASDIRECTED PRN Saline Lock Insert [OM.PC] Stat 02/12/20 00:03 RT Aerosol Therapy [RC] ASDIRECTED 02/12/20 01:30 Sodium Chloride 0.9% [Normal Saline] 1,000 ml IV ASDIRECTED
[2020-02-11] MEDS ORDERED: Sodium Chloride 0.9% 1,000 ML IV ONE (22:56)
[2020-02-11] MEDS ORDERED: Ondansetron 4 MG/2 ML SDV IVPUSH ONE (22:56)
[2020-02-11] MEDS ORDERED: Benzonatate 100 MG Cap PO ONE (22:57)
[2020-02-11 23:27] LABS: BLOOD UREA NITROGEN,BUN 13 mg/dL (7.0-18.0); CARBON DIOXIDE,CO2 28.1 mmol/L (21.0-32.0); CHLORIDE,CL 106 mmol/L (98-107); GLUCOSE RANDOM 111 mg/dL (74-106); POTASSIUM,K 3.6 mmol/L (3.5-5.1); SODIUM,NA 141 mmol/L (136-145)
[2020-02-12] MEDS ORDERED: Albuterol/Ipratropium 3.0-0.5 MG/3 ML Neb Soln NEB ONE (00:03)
[2020-02-12] MEDS ORDERED: guaiFENesin 100 MG/5 ML Soln 5 ML UD Cup PO ONE (00:26)
--- NOTE | 2020-02-12 01:15 | CR ---
Indication: Cough Technique: Chest 1 view Comparison: Chest x-ray 06/17/2018 Findings/Impression: Cardiovascular and mediastinum: Heart size and vasculature are normal in caliber and appearance. Lungs and pleural space: No pleural effusion or pneumothorax. Mild bronchial wall thickening which can be seen in bronchitis or reactive airways disease. Bones and soft tissues: No acute findings. Dictated by Wade Ruiz MD @ Feb 12 2020 1:13AM Signed by Dr. Wade Ruiz @ Feb 12 2020 1:14AM
[2020-02-12] MEDS ORDERED: predniSONE 20 MG Tab PO ONE (01:19)
[2020-02-12] MEDS ORDERED: Sodium Chloride 0.9% 1,000 ML IV SCH (01:30)
[2020-02-12 02:35] VITALS: BP 117/54; PULSE 104
== END 2020-02-12 02:33 | disposition home or self-care (01) ==
LOC: MW.ED 22:05
DX: J40 Bronchitis, not specified as acute or chronic (principal); F41.9 Anxiety disorder, unspecified; Z20.828 Contact with and (suspected) exposure to other viral communicable diseases; Z91.030 Bee allergy status; Z79.899 Other long term (current) drug therapy
CPT/HCPCS: 36415; 71045; 80053; 81001; 84703; 85025; 87635; 93005; 96361; 96374; 99284; A9270; J2405; J7030; J7620-GY; U0002

== ENCOUNTER 2021-03-29 20:18 | Emergency (ER) | payer MEDICAID ==
[2021-03-29] MEDS ORDERED: Albuterol/Ipratropium 3.0-0.5 MG/3 ML Neb Soln NEB ONE (23:33)
[2021-03-29] MEDS ORDERED: predniSONE 20 MG Tab PO ONE (23:38)
[2021-03-29] MEDS ORDERED: Lactated Ringers 1,000 ML IV SCH (23:45)
--- NOTE | 2021-03-30 00:46 | CR ---
Indication: Cough Technique: Chest 1 view Comparison: Chest x-ray 06/17/2020 Findings/Impression: Cardiovascular and mediastinum: Heart size and vasculature are normal in caliber and appearance. Lungs and pleural space: No pleural effusion or pneumothorax. Bronchial wall thickening, greater on the right suspicious for bronchitis/bronchiolitis in this setting. Bones and soft tissues: No acute findings. Dictated by Wade Ruiz MD @ 03/30/2021 12:44:36 AM (Electronically Signed)
--- NOTE | 2021-03-30 01:07 | EDM.PDOC ---
ED HPI GENERAL MEDICAL PROBLEM - General Chief Complaint: Respiratory Problem Stated Complaint: COUGH, FEVER, CAN'T BREATHE Time Seen by Provider: 03/29/21 23:09 - History of Present Illness INITIAL COMMENTS - FREE TEXT/NARRATIVE: CHIEF COMPLAINT(S): Cough HISTORY OF PRESENT ILLNESS: This is a 30-year-old woman with a past medical history of asthma and depression who comes to the emergency department with a chief complaint of cough. Patient states that for approximately 1 week now she has been experiencing cough which is nonproductive and shortness of breath. She states that she has been using Tessalon Perles and Mucinex without any relief. She states that she does have a history of asthma so she has been using her inhaler without any relief. She denies any productive cough and states that she does have fever and chills. She states that she is fully vaccinated. She states that she thinks she needs fluids. She denies any chest pain, abdominal pain, nausea or vomiting. She denies any headache or blurry vision. She denies any other symptoms. REVIEW OF SYSTEMS: Constitutional: Denies fever, chills. Eyes: Denies eye pain Ears, Nose, Mouth, & Throat: Denies earache Cardiovascular: Denies chest pain Respiratory: Positive for shortness of breath and cough Gastrointestinal: Denies Nausea, vomiting, diarrhea, hematochezia. Genitourinary: Denies hematuria Skin:Denies a rash MSK: Denies joint pain Neurological: Denies blurred vision Psychiatric: Positive for depression PAST MEDICAL HISTORY: As per history of present illness and as reviewed below otherwise noncontributory. SURGICAL HISTORY: As per history of present illness and as reviewed below otherwise noncontributory. SOCIAL HISTORY: As per history of present illness and as reviewed below otherwise noncontributory. FAMILY HISTORY: As per history of present illness and as reviewed below otherwise noncontributory. EXAMINATION OF ORGAN SYSTEMS/BODY AREAS: Constitutional: Blood pressure is 116/76, heart rate 93, respiratory rate 18 w ith an oxygen saturation 98% on room air. Temperature 37.6 General: Well-appearing woman who is in no acute distress Psychiatric: Appears mildly anxious but is cooperative Eyes: No scleral icterus or conjunctival erythema ENMT: Moist mucous membranes. No pharyngeal erythema Cardiovascular: Regular, rate, and rhythm. No gallops, murmurs, or rubs. Bilateral upper extremity pulses symmetric and intact. No peripheral edema. No JVD. Respiratory: Lungs clear to auscultation bilaterally. No wheezes, rales, or rhonchi. Gastrointestinal: Soft, non-tender, non-distended. Normoactive bowel sounds Genitourinary: No suprapubic tenderness Musculoskeletal: Normal range of motion. Skin: No lesions or abrasions. Neurological: Alert, GCS 15 MEDICAL DECISION MAKING AND COURSE IN THE ED WITH INTERPRETATION/REVIEW OF DIAGNOSTIC STUDIES: This is a 30-year-old woman with a past medical history of anxiety/depression and asthma who comes to the emergency department with 1 week of nonproductive cough and shortness of breath. The patient is saturating appropriately and is intermittently coughing. Given her history of asthma we will provide the patient with 1 DuoNeb treatment and provided with prednisone for possible asthma/bronchitis. Will obtain a chest x-ray and provide her with 1 L of fluids. I do not believe any other labs or imaging are indicated. DDx: Asthma exacerbation, bronchitis, pneumonia Laboratory: Covid is negative. Influenza negative. The radiological images were viewed by myself along with reading the report from the radiologist. Chest x-ray reveals bronchial wall thickening greater on the right suspicious for bronchiolitis versus bronchitis. Otherwise no acute findings. After imaging the patient continued to remain stable. The patient was not tachypneic and saturating appropriately talking on her phone. At this time I did discuss that she be stable for discharge. I did discuss that I would provide her with a prescription for prednisone and that she needs to use her albuterol scheduled for the acute bronchitis. She is to follow-up with primary care physician for reevaluation. She was given strict return precautions and had no further questions DISPOSITION: The patient was discharged home in stable condition. The patient will follow up with primary care physician in 3 to 5 days CONDITION: As fair PROCEDURES: None FINAL IMPRESSION(S)/DIAGNOSES: 1. Acute bronchitis Jed Vuong M.D. Bilateral Generalized Pain Score (Numeric/FACES): 8 - Related Data Allergies Allergy/AdvReac Type Severity Reaction Status Date / Time venom-honey bee Allergy Anaphylactic Verified 03/29/21 22:16 [bee venom (honey bee)] Shock Home Meds: Home Meds Dextroamphetamine/Amphetamine [Adderall 10 mg Tablet] 20 mg PO DAILY PRN 11/15/14 [History] Albuterol [Ventolin HFA] 2 puff INH ASDIRECTED PRN 08/11/16 [History] Control 02/15/19 [History] FLUoxetine [PROzac] 1 tab PO DAILY 02/15/19 [History] Muscle Relaxwer 02/11/20 [History] predniSONE [Prednisone] 60 mg PO DAILY 5 Days #15 tablet 02/12/20 [Rx] predniSONE [Prednisone] 50 mg PO DAILY #5 tablet 03/30/21 [Rx] Past Medical History HEENT History: Reports: None Cardiovascular History: Reports: Other (See Below) Other Cardiovascular History: states has irregular heartbeat at times Respiratory History: Reports: Asthma Gastrointestinal History: Reports: None Genitourinary History: Reports: None SOCIAL SCIENTIST History: Reports: None Musculoskeletal History: Reports: None Neurological History: Reports: Headaches, Chronic, Other (See Below) Psychiatric History: Reports: ADD, Anxiety Endocrine/Metabolic History: Reports: None Hematologic History: Reports: None Immunologic History: Reports: Other (See Below) Other Immunologic History: IgA/Ige Oncologic (Cancer) History: Reports: None Dermatologic History: Reports: None - Infectious Disease History Infectious Disease History: Reports: Chicken Pox - Past Surgical History Head Surgeries/Procedures: Reports: None HEENT Surgical History: Reports: Myringotomy w Tube(s), Naso-Sinus Surgery, Oral Surgery Other HEENT Surgeries/Procedures: septoplasty. ears pinned back Cardiovascular Surgical History: Reports: None Respiratory Surgical History: Reports: None GI Surgical History: Reports: None Female Surgical History: Reports: None Endocrine Surgical History: Reports: None Neurological Surgical History: Reports: None Musculoskeletal Surgical History: Reports: None Dermatological Surgical History: Reports: None Social & Family History - Family History Family Medical History: No Pertinent Family History - Tobacco Use Tobacco Use Status *Q: Never Tobacco User - Caffeine Use Caffeine Use: Reports: Coffee - Recreational Drug Use Recreational Drug Use: No ED ROS GENERAL - Review of Systems Review Of Systems: See Below ED EXAM, GENERAL - Physical Exam Exam: See Below Course - Vital Signs Last Recorded V/S: Last Vital Signs Temp 37.6 C 03/29/21 22:17 Pulse 94 03/30/21 01:30 Resp 17 03/30/21 01:30 BP 117/92 H 03/30/21 01:30 Pulse Ox 98 03/30/21 01:30 - Orders/Labs/Meds Labs: Laboratory Tests 03/29/21 Range/Units 22:22 SARS-CoV-2 RNA (BEV) NEGATIVE (NEGATIVE) Meds: Medications Discontinued Medications Generic Name Dose Route Start Last Admin Trade Name Husam PRN Reason Stop Dose Admin Albuterol/Ipratropium 3 ml 03/29/21 23:33 03/29/21 23:36 Albuterol/Ipratropium 3.0-0.5 Mg/3 Ml Neb Soln NEB 03/29/21 23:34 3 ml ONETIME ONE Administration Lactated Ringer's 1,000 mls @ 999 mls/hr 03/29/21 23:45 03/29/21 23:55 Ringers, Lactated IV 999 mls/hr ASDIRECTED SWAPNA Administration Prednisone 60 mg 03/29/21 23:38 03/29/21 23:55 Prednisone 20 Mg Tab PO 03/29/21 23:39 60 mg ONETIME ONE Administration Departure - Departure Time of Disposition: 01:06 Disposition: Home, Self-Care 01 Condition: Fair Clinical Impression: Acute bronchitis - Discharge Information *PRESCRIPTION DRUG MONITORING PROGRAM REVIEWED*: No *COPY OF PRESCRIPTION DRUG MONITORING REPORT IN PATIENT GRETTA: No Prescriptions: predniSONE [Prednisone] 50 mg PO DAILY #5 tablet Instructions: Acute Bronchitis, Adult Referrals: PCP,None [Primary Care Provider] - Forms: ED Department Discharge Additional Instructions: You were evaluated today on an emergent basis. At this time given your symptoms you likely have a viral upper respiratory infection. Your chest x-ray did reveal evidence of bronchitis. I recommend you use your albuterol inhaler every 2-4 hours as needed for shortness of breath and take prednisone 50 mg daily. For sleep I recommend that you use [id number] melatonin or Benadryl. You may use Tylenol and Motrin for fever and body aches. If you have any worsening symptoms please return to the emergency department. Otherwise follow-up with your primary care physician within 3 to 5 days [facility] [address] [place] [address] [id number] [address] [address] The patient is informed of any results of their evaluation and diagnostic workup and all questions are answered. They are given discharge instructions and return precautions. The patient is stable for discharge. The patient states they understand and agree with the plan and that they will return if their symptoms get worse or if they have any new concerns. The following information is given to patients seen in the emergency department who are being discharged to home. This information is to outline your options for follow-up care. We provide all patients seen in our emergency department with a follow-up referral. The need for follow-up, as well as the timing and circumstances, are variable depending upon the specifics of your emergency department visit. If you don't have a primary care physician on staff, we will provide you with a referral. We always advise you to contact your personal physician following an emergency department visit to inform them of the circumstance of the visit and for follow-up with them and/or the need for any referrals to a consulting specialist. The emergency department will also refer you to a specialist when appropriate. This referral assures that you have the opportunity for follow-up care with a specialist. All of these measure are taken in an effort to provide you with optimal care, which includes your follow-up. Under all circumstances we always encourage you to contact your private physician who remains a resource for coordinating your care. When calling for follow-up care, please make the office aware that this follow-up is from your recent emergency room visit. If for any reason you are refused follow-up, please contact the [facility] Emergency Department at and asked to speak to the emergency department charge nurse.
[2021-03-30 01:30] VITALS: BP 117/92; PULSE 94
== END 2021-03-30 01:30 | disposition home or self-care (01) ==
LOC: MW.ED 20:18
DX: J20.9 Acute bronchitis, unspecified (principal); Z91.030 Bee allergy status; Z20.822 Contact with and (suspected) exposure to COVID-19
CPT/HCPCS: 71045; 87635; 87804; 99285; A9270; J7120; J7620-GY; U0002

== ENCOUNTER 2021-04-01 10:55 | Emergency (ER) | payer MEDICAID ==
--- NOTE | 2021-04-01 12:49 | EDM.PDOC ---
ED HPI GENERAL MEDICAL PROBLEM - General Chief Complaint: General Stated Complaint: COUGH FEVER SOB Time Seen by Provider: 04/01/21 12:14 - History of Present Illness INITIAL COMMENTS - FREE TEXT/NARRATIVE: 30-year-old female with a history of asthma presents with ongoing cough and burning pain in her lungs. Patient symptoms started 3 days ago. She was seen here in the ER she had a chest x-ray that showed bronchitis. Covid and flu were both negative. Patient reports she is been compliant with her 50 mg daily prednisone and she has been doing albuterol neb treatments every few hours. She complains of constant burning pain in her lungs and a severe cough. No fevers no myalgias some nausea but no vomiting no abdominal pain or diarrhea. - Related Data Allergies Allergy/AdvReac Type Severity Reaction Status Date / Time venom-honey bee Allergy Anaphylactic Verified 03/29/21 22:16 [bee venom (honey bee)] Shock Home Meds: Home Meds Dextroamphetamine/Amphetamine [Adderall 10 mg Tablet] 20 mg PO DAILY PRN 11/15/14 [History] Albuterol [Ventolin HFA] 2 puff INH ASDIRECTED PRN 08/11/16 [History] Control 02/15/19 [History] FLUoxetine [PROzac] 1 tab PO DAILY 02/15/19 [History] Muscle Relaxwer 02/11/20 [History] predniSONE [Prednisone] 50 mg PO DAILY #5 tablet 03/30/21 [Rx] Benzonatate [Tessalon Perles] 100 mg PO TID PRN 7 Days #21 cap 04/01/21 [Rx] Past Medical History HEENT History: Reports: None Cardiovascular History: Reports: Other (See Below) Other Cardiovascular History: states has irregular heartbeat at times Respiratory History: Reports: Asthma Gastrointestinal History: Reports: None Genitourinary History: Reports: None 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: 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: 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 Musculoskeletal History: Reports: None Neurological History: Reports: Headaches, Chronic, Other (See Below) Psychiatric History: Reports: ADD, Anxiety Endocrine/Metabolic History: Reports: None Hematologic History: Reports: None Immunologic History: Reports: Other (See Below) Other Immunologic History: IgA/Ige Oncologic (Cancer) History: Reports: None Dermatologic History: Reports: None - Infectious Disease History Infectious Disease History: Reports: Chicken Pox - Past Surgical History Head Surgeries/Procedures: Reports: None HEENT Surgical History: Reports: Myringotomy w Tube(s), Naso-Sinus Surgery, Oral Surgery Other HEENT Surgeries/Procedures: septoplasty. ears pinned back Cardiovascular Surgical History: Reports: None Respiratory Surgical History: Reports: None GI Surgical History: Reports: None Female Surgical History: Reports: None Endocrine Surgical History: Reports: None Neurological Surgical History: Reports: None Musculoskeletal Surgical History: Reports: None Dermatological Surgical History: Reports: None Social & Family History - Family History Family Medical History: No Pertinent Family History - Caffeine Use Caffeine Use: Reports: Coffee ED ROS GENERAL - Review of Systems Review Of Systems: See Below Free Text/Narrative/Comment: General: No fever. Skin: No rash. Eyes: No vision problems. ENT: No sore throat. Neck: No neck stiffness. Respiratory: Per HPI Cardiac: No chest pain. Gastrointestinal: Positive nausea no vomiting or abdominal pain. Urinary: No dysuria. Musculoskeletal: No myalgias/arthralgias. Neurologic: No headache. ED EXAM, GENERAL - Physical Exam Exam: See Below Free Text/Narrative:: General Appearance: No acute distress, appears comfortable Skin: No rash HEENT: Normocephalic/atraumatic, sclera anicteric, mucous membranes moist Neck: Normal range of motion Chest and Lungs: Lungs are clear on exam except during coughing when there is a diffuse expiratory wheeze. Cardiovascular: Regular rate and rhythm Abdomen: Soft, non-tender Musculoskeletal: No edema or tenderness Neurologic: Awake, alert, no obvious deficits, moving all extremities Psychiatric: Appropriate, cooperative Course - Vital Signs Last Recorded V/S: Last Vital Signs Temp 97.3 F 04/01/21 12:15 Pulse 96 04/01/21 13:06 Resp 15 04/01/21 13:06 BP 131/87 04/01/21 13:06 Pulse Ox 99 04/01/21 13:06 - Orders/Labs/Meds Orders: Active Orders 24 hr Category Date Time Status RT Aerosol Therapy [RC] ASDIRECTED Care 04/01/21 12:50 Active RT Aerosol Therapy [RC] ASDIRECTED Care 04/01/21 12:51 Active RT Post Treatment Assessment [RC] Click to Edit Care 04/01/21 13:18 Active RT Pre-Treatment Assessment [RC] Click to Edit Care 04/01/21 13:18 Active Sodium Chloride 0.9% [Normal Saline] 1,000 ml Med 04/01/21 12:50 Active IV .Bolus Medication Orders Sodium Chloride (Normal Saline) 1,000 mls @ 999 mls/hr IV .Bolus ONE Stop: 04/01/21 13:50 Last Admin: 04/01/21 13:02 Dose: 999 mls/hr Documented by: SILVIA Meds: Medications Generic Name Dose Route Start Last Admin Trade Name Freq PRN Reason Stop Dose Admin Sodium Chloride 1,000 mls @ 999 mls/hr 04/01/21 12:50 04/01/21 13:02 Normal Saline IV 04/01/21 13:50 999 mls/hr .Bolus ONE Administration Discontinued Medications Generic Name Dose Route Start Last Admin Trade Name Freq PRN Reason Stop Dose Admin Albuterol 10 mg 04/01/21 12:51 04/01/21 13:09 Albuterol 0.5% 5 Mg/Ml Neb Soln 20 Ml Bottle NEB 04/01/21 12:52 10 mg ONETIME ONE Administration Albuterol/Ipratropium 3 ml 04/01/21 12:50 04/01/21 13:10 Albuterol/Ipratropium 3.0-0.5 Mg/3 Ml Neb Soln NEB 04/01/21 12:51 3 ml ONETIME ONE Administration Ipratropium [place] 0.5 mg 04/01/21 13:18 04/01/21 13:37 Ipratropium 0.02% 0.5 Mg/2.5 Ml Neb Soln NEB 04/01/21 13:19 0.5 mg ONETIME ONE Administration Departure - Departure Time of Disposition: 13:48 Disposition: Home, Self-Care 01 Condition: Good Clinical Impression: Bronchitis - Discharge Information *PRESCRIPTION DRUG MONITORING PROGRAM REVIEWED*: Not Applicable *COPY OF PRESCRIPTION DRUG MONITORING REPORT IN PATIENT GRETTA: Not Applicable Prescriptions: Benzonatate [Tessalon Perles] 100 mg PO TID PRN 7 Days #21 cap PRN Reason: Cough Instructions: Acute Bronchitis, Adult, [id number] Forms: ED Department Discharge Additional Instructions: I do believe your symptoms are due to ongoing bronchitis. I encourage you to continue to do breathing treatments at home and complete your course of prednisone. I encourage you to follow-up with your primary care clinic. The following information is given to patients seen in the emergency department who are being discharged to home. This information is to outline your options for follow-up care. We provide all patients seen in our emergency department with a follow-up referral. The need for follow-up, as well as the timing and circumstances, are variable depending upon the specifics of your emergency department visit. If you don't have a primary care physician on staff, we will provide you with a referral. We always advise you to contact your personal physician following an emergency department visit to inform them of the circumstance of the visit and for follow-up with them and/or the need for any referrals to a consulting specialist. The emergency department will also refer you to a specialist when appropriate. This referral assures that you have the opportunity for follow-up care with a specialist. All of these measure are taken in an effort to provide you with optimal care, which includes your follow-up. Under all circumstances we always encourage you to contact your private physician who remains a resource for coordinating your care. When calling for follow-up care, please make the office aware that this follow-up is from your recent emergency room visit. If for any reason you are refused follow-up, please contact the [facility] Emergency Department at and asked to speak to the emergency department charge nurse. Sepsis Event Note (ED) - Evaluation Sepsis Screening Result: No Definite Risk - Focused Exam Vital Signs: Vital Signs Temp Pulse Resp BP Pulse Ox 04/01/21 13:06 96 15 131/87 99 04/01/21 12:15 97.3 F 87 18 116/72 97 - My Orders Last 24 Hours: My Active Orders 04/01/21 12:50 RT Aerosol Therapy [RC] ASDIRECTED Sodium Chloride 0.9% [Normal Saline] 1,000 ml IV .Bolus 04/01/21 12:51 RT Aerosol Therapy [RC] ASDIRECTED 04/01/21 13:18 RT Post Treatment Assessment [RC] Click to Edit RT Pre-Treatment Assessment [RC] Click to Edit - Assessment/Plan Last 24 Hours: My Active Orders 04/01/21 12:50 RT Aerosol Therapy [RC] ASDIRECTED Sodium Chloride 0.9% [Normal Saline] 1,000 ml IV .Bolus 04/01/21 12:51 RT Aerosol Therapy [RC] ASDIRECTED 04/01/21 13:18 RT Post Treatment Assessment [RC] Click to Edit RT Pre-Treatment Assessment [RC] Click to Edit Assessment:: 30-year-old female presenting with ongoing bronchitis. Lungs are clear no focality that would suggest pneumonia at this time. Patient very concerned about the possibility of pneumonia. She stated that sometimes "they do not see pneumonia unless CT scan." We discussed that with no fever with normal vital signs here with no focality on pulmonary exam I do not think CT scan is indicated at this time. I do think her symptoms are due to ongoing bronchitis. Patient concerned about dehydration IV fluid will be given as well as a nebulizer treatment. We will then reassess the lungs if there is any focality following that could consider additional imaging at that time. 1347: Patient with good response to breathing treatment she is talking rapidly and fluently on the phone when the resident enters the room she then immediately starts coughing. She appears well on exam normal work of breathing no wheezing patient felt stable for discharge.
[2021-04-01] MEDS ORDERED: Albuterol/Ipratropium 3.0-0.5 MG/3 ML Neb Soln NEB ONE (12:50)
[2021-04-01] MEDS ORDERED: Sodium Chloride 0.9% 1,000 ML IV ONE (12:50)
[2021-04-01] MEDS ORDERED: Albuterol 0.5% 5 MG/ML Neb Soln 20 ML Bottle NEB ONE (12:51)
[2021-04-01] MEDS ORDERED: Ipratropium 0.02% 0.5 MG/2.5 ML Neb Soln NEB ONE (13:18)
[2021-04-01 14:12] VITALS: BP 122/71; PULSE 84
== END 2021-04-01 14:12 | disposition home or self-care (01) ==
LOC: MW.ED 10:55
DX: J40 Bronchitis, not specified as acute or chronic (principal); Z91.030 Bee allergy status
CPT/HCPCS: 94640; 99283; J7030; J7620-GY

== ENCOUNTER 2022-03-27 06:27 | Day surgery (SDC) | payer MEDICAID ==
[~2022-03-27 06:27] MED LIST: Lactated Ringers 1,000 ML IV SCH; Pregabalin 75 MG Cap PO SCH; Scopolamine 1.5 MG Transdermal Patch ONE; cefOXitin 2 GM in Premix Bag 1 BAG IV SCH
[2022-03-27] MEDS ORDERED: fentaNYL 50 MCG/ML SDV IVPUSH PRN (07:04)
[2022-03-27] MEDS ORDERED: HYDROmorphone 1 MG/ML Syringe IVPUSH PRN (07:04)
[2022-03-27] MEDS ORDERED: Naloxone 0.4 MG/ML SDV IVPUSH PRN (07:04)
[2022-03-27] MEDS ORDERED: Morphine 2 MG/ML SYRINGE IVPUSH PRN (07:04)
[2022-03-27] MEDS ORDERED: Metoclopramide 10 MG/2 ML SDV IVPUSH PRN (07:04)
[2022-03-27] MEDS ORDERED: Albuterol 0.083% 2.5 MG/3 ML Neb Soln NEB PRN (07:04)
[2022-03-27] MEDS ORDERED: Ondansetron 4 MG/2 ML SDV IVPUSH PRN (07:04)
[2022-03-27] MEDS ORDERED: Scopolamine 1.5 MG Transdermal Patch TOP ONE (07:15)
[2022-03-27] MEDS ORDERED: Dexmedetomidine 200 MCG/2 ML SDV ONE ×2 (07:29→07:30)
[2022-03-27] MEDS ORDERED: Water For Injection, Sterile 20 ML ONE (07:30)
[2022-03-27] MEDS ORDERED: fentaNYL 100 MCG/2 ML SDV ONE (07:30)
[2022-03-27] MEDS ORDERED: Propofol 200 MG/20 ML SDV ONE (07:30)
[2022-03-27] MEDS ORDERED: Bupivacaine 0.25% 30 ML SDV ONE ×3 (07:36→07:49)
[2022-03-27] MEDS ORDERED: Lidocaine 1% 5 ML VIAL ONE (07:52)
[2022-03-27] MEDS ORDERED: Indocyanine Green 25 MG SDV ONE (08:11)
[2022-03-27] MEDS ORDERED: Ketamine 500 mg/10 ML MDV ONE (08:12)
[2022-03-27] MEDS ORDERED: cefOXitin 1 GM Vial ONE (08:13)
[2022-03-27] MEDS ORDERED: Magnesium Sulfate (4.06 MEQ/ML) 5 GM/10 ML SDV ONE (08:16)
[2022-03-27] MEDS ORDERED: Dexamethasone 4 MG/ML 5 ML MDV ONE (08:29)
[2022-03-27] MEDS ORDERED: ePHEDrine 50 MG/ML SDV ONE (08:34)
[2022-03-27] MEDS ORDERED: Phenylephrine HCl In 0.9% NaCl 1 MG/10 ML Vial ONE (08:47)
[2022-03-27] MEDS ORDERED: Sugammadex Sodium 200 MG/2 ML VIAL ONE (09:05)
[2022-03-27] MEDS ORDERED: Ondansetron 4 MG/2 ML SDV ONE (09:05)
[2022-03-27] MEDS ORDERED: traMADol 50 MG Tab ONE (11:10)
[2022-03-27] MEDS ORDERED: traMADol 50 MG Tab PO ONE (12:36)
[2022-03-27 12:57] VITALS: BP 105/58; PULSE 100
== END 2022-03-27 12:10 | disposition home or self-care (01) ==
LOC: MW.SDS 06:27
PROVIDERS: ATTEND Surgery
DX: K80.20 Calculus of gallbladder without cholecystitis without obstruction (principal); J45.909 Unspecified asthma, uncomplicated; K21.9 Gastro-esophageal reflux disease without esophagitis; F41.9 Anxiety disorder, unspecified; Z88.5 Allergy status to narcotic agent; Z88.6 Allergy status to analgesic agent; Z91.030 Bee allergy status; Z98.890 Other specified postprocedural states; Z79.899 Other long term (current) drug therapy
CPT/HCPCS: 47562; 81025; A9270; J0694; J1100; J2405; J2704; J3010; J3475; J3490; J7030; J7120; 00790; 64488